=== PATIENT | female | born 1960 | race Caucasian/White ===

== ENCOUNTER 2022-01-11 00:28 | Emergency (ER) | payer OTHER, MEDICARE ==
[~2022-01-11] VITALS: Ht 162.6 cm; Wt 59.3 kg
[~2022-01-11 00:28] MED LIST: ADVIL200 MG PO; CHLORTHALIDONE25 MG PO; HYDROCODON-ACE1 EA11 PO; NORCO 5-325 TA1 EACH PO
[2022-01-11] MEDS ORDERED: ATORVASTATIN CA10 MG PO (00:52)
[2022-01-11] MEDS ORDERED: BUSPIRONE HCL15 MG PO (00:54)
[2022-01-11] MEDS ORDERED: GABAPENTIN300 MG PO (00:55)
[2022-01-11] MEDS ORDERED: LACTULOSE10 GM/151 PO (00:55)
[2022-01-11] MEDS ORDERED: MELATONIN10 MG PO (00:56)
[2022-01-11] MEDS ORDERED: LISINOPRIL-HCT1 EAC1 PO (00:56)
[2022-01-11] MEDS ORDERED: MULTIVITAMIN1 EACH PO (00:57)
[2022-01-11] MEDS ORDERED: MEMANTINE HCL10 MG PO (00:57)
[2022-01-11] MEDS ORDERED: ZIPRASIDONE HCL40 MG PO (00:58)
[2022-01-11] MEDS ORDERED: SULFAMETHOXAZO1 EAC1 PO (00:58)
[2022-01-11] MEDS ORDERED: OLANZAPINE20 MG PO (02:28)
== END 2022-01-11 05:13 | disposition home or self-care (01) ==
LOC: ED 00:28
DX: I95.9 Hypotension, unspecified (principal); Z04.3 Encounter for examination and observation following other accident; Z87.891 Personal history of nicotine dependence; Z88.5 Allergy status to narcotic agent; Z91.040 Latex allergy status; Z79.899 Other long term (current) drug therapy
CPT/HCPCS: 36415; 51701; 70450; 71260; 72125; 74177; 80053; 81001; 82553; 85025; 99284-25; J7030; J7040; Q9967